=== PATIENT | female | born 1985 | race African-American/Black ===

== ENCOUNTER 2017-06-05 19:26 | Inpatient (IN) | payer MEDICAID ==
[~2017-06-05] VITALS: Ht 170.2 cm; Wt 131.8 kg
[2017-06-05] MEDS ORDERED: OXYTOCIN 30U/ 0.9% NaCL 500ML 500 ML IV PRN (19:36)
[2017-06-05] MEDS ORDERED: OXYTOCIN 30U/ 0.9% NaCL 500ML 500 ML IV ONE (19:36)
[2017-06-05 19:45] VITALS: BP 193/113
[2017-06-05] MEDS ORDERED: hydrALAzine 20 MG/ML, 1ML ONE ×2 (19:45→21:45)
[2017-06-05] MEDS ORDERED: MAGNESIUM SULF. PMX 20GM/500ML 500 ML IV ONE (19:45)
[2017-06-05] MEDS: LACTATED RINGERS 1,000 ML IV SCH (19:45)
[2017-06-05] MEDS ORDERED: MAGNESIUM SULFATE PMX 4GM/100M 100 ML ONE (19:45)
[2017-06-05] MEDS ORDERED: RHOGAM FROM BLOOD BANK 1 NOTE EA IM/IV PRN (20:00)
[2017-06-05] MEDS ORDERED: CALCIUM GLUCONATE 0.46MEQ/1ML IVPush ONE (20:00)
[2017-06-05] MEDS ORDERED: MAGNESIUM SULFATE PMX 4GM/100M 100 ML IVPB ONE (20:00)
[2017-06-05] MEDS ORDERED: PLEASE ENTER HEIGHT AND WEIGHT MC SCH (20:00)
[2017-06-05] MEDS ORDERED: PLEASE ENTER ALLERGIES MC SCH ×2 (20:00)
[2017-06-05] MEDS ORDERED: LABE100T3 PO (20:04)
[2017-06-05] MEDS: hydrALAzine 20 MG/ML, 1ML IV PRN ×3 (20:07→22:05)
[2017-06-05 20:14] LABS: HEMATOCRIT 34.1 % (34.6-47.8); HEMOGLOBIN 11.5 g/dL (11.7-16.4); WHITE BLOOD COUNT 7.4 x10^3/uL (3.4-10)
[2017-06-05 20:21] LABS: ASPARTATE AMINO TRANSFERASE 15 U/L (15-37); BLOOD UREA NITROGEN 5 mg/dL (7-18)
[2017-06-05] MEDS ORDERED: MISOPROSTOL 200 MCG TABLET ONE ×2 (20:41→22:14)
[2017-06-05 20:44] LABS: DAU SCREEN DISCLAIMER
[2017-06-05] MEDS: MISOPROSTOL 200 MCG TABLET VG SCH (20:53)
[2017-06-05 21:06] LABS: PATH.CAST-FLAG NOT PRESENT; SPERM-FLAG NOT PRESENT; SRC-FLAG NOT PRESENT; XTAL-FLAG NOT PRESENT; YLC-FLAG NOT PRESENT
[2017-06-05] MEDS ORDERED: LABETALOL 100 MG TABLET ONE ×2 (21:48→22:14)
[2017-06-05] MEDS: LABETALOL 100 MG TABLET PO SCH (21:50)
[2017-06-05] MEDS ORDERED: OXYcodone/APAP 5/325MG TABLET ONE (22:14)
[2017-06-05] MEDS ORDERED: OXYTOCIN 30U/ 0.9% NaCL 500ML 500 ML ONE (22:14)
[2017-06-05] MEDS: OXYcodone/APAP 5/325MG TABLET PO PRN (22:20)
[2017-06-05] MEDS ORDERED: LABETALOL 100 MG TABLET PO SCH (22:30)
[2017-06-05] MEDS ORDERED: ONDANSETRON 2MG/ML, 2ML ONE (23:01)
[2017-06-05] MEDS: ONDANSETRON 2MG/ML, 2ML IVPush PRN (23:03)
[2017-06-06] MEDS: hydrALAzine 20 MG/ML, 1ML IV PRN ×7 (00:09→12:54)
[2017-06-06] MEDS ORDERED: FENTANYL PF 100 MCG/2ML ONE ×2 (01:28→07:47)
[2017-06-06] MEDS: FENTANYL PF 100 MCG/2ML IVPush PRN ×2 (01:32→07:49)
[2017-06-06 03:11] LABS: HEMATOCRIT 35.8 % (34.6-47.8); HEMOGLOBIN 11.9 g/dL (11.7-16.4); WHITE BLOOD COUNT 10.9 x10^3/uL (3.4-10)
[2017-06-06 03:19] LABS: BLOOD UREA NITROGEN 5 mg/dL (7-18)
[2017-06-06 03:22] LABS: ASPARTATE AMINO TRANSFERASE 15 U/L (15-37)
[2017-06-06] MEDS ORDERED: MISOPROSTOL 200 MCG TABLET ONE (04:18)
[2017-06-06] MEDS ORDERED: ACETAMINOPHEN 325 MG TABLET ONE (04:18)
[2017-06-06] MEDS: MISOPROSTOL 200 MCG TABLET VG SCH (04:26)
[2017-06-06] MEDS ORDERED: ACETAMINOPHEN 325 MG TABLET PO PRN ×2 (04:30→10:00)
[2017-06-06] MEDS ORDERED: ACETAMINOPHEN 500 MG TABLET PO PRN (04:30)
[2017-06-06] MEDS ORDERED: MAGNESIUM SULF. PMX 20GM/500ML 500 ML IV ONE ×2 (06:01→17:31)
[2017-06-06] MEDS: MAGNESIUM SULF. PMX 20GM/500ML 500 ML IV PRN ×2 (06:03→17:39)
[2017-06-06] MEDS ORDERED: OXYcodone/APAP 5/325MG TABLET ONE (06:06)
[2017-06-06] MEDS: OXYcodone/APAP 5/325MG TABLET PO PRN (06:07)
[2017-06-06] MEDS ORDERED: LABETALOL 100 MG TABLET ONE ×2 (06:24→12:20)
[2017-06-06] MEDS ORDERED: LABETALOL 200 MG TABLET ONE ×2 (06:24→23:29)
[2017-06-06] MEDS: LABETALOL 100 MG TABLET PO SCH (06:25)
[2017-06-06] MEDS ORDERED: hydrALAzine 20 MG/ML, 1ML ONE ×3 (07:03→12:40)
[2017-06-06] MEDS: LACTATED RINGERS 1,000 ML IV SCH (07:52)
[2017-06-06] MEDS ORDERED: ONDANSETRON 2MG/ML, 2ML ONE (07:55)
[2017-06-06] MEDS: ONDANSETRON 2MG/ML, 2ML IVPush PRN (07:59)
[2017-06-06] MEDS ORDERED: morphine SULFATE 10 MG/ML, 1ML IVPush ONE ×2 (08:30→09:15)
[2017-06-06] MEDS ORDERED: METOCLOPRAMIDE 5 MG/ML, 2ML IVPush PRN (08:30)
[2017-06-06] MEDS ORDERED: METOCLOPRAMIDE 5 MG/ML, 2ML ONE ×2 (08:34→16:00)
[2017-06-06] MEDS ORDERED: morphine SULFATE 10 MG/ML, 1ML ONE (08:34)
[2017-06-06] MEDS ORDERED: OXYTOCIN 30U/ 0.9% NaCL 500ML 500 ML IV SCH (09:48)
[2017-06-06] MEDS ORDERED: MISOPROSTOL 200 MCG TABLET SL PRN (10:00)
[2017-06-06] MEDS ORDERED: IBUPROFEN 600 MG TABLET PO PRN (10:00)
[2017-06-06] MEDS ORDERED: OXYcodone/APAP 5/325MG TABLET PO PRN ×2 (10:00)
[2017-06-06] MEDS ORDERED: ONDANSETRON 2MG/ML, 2ML IV PRN (10:00)
[2017-06-06] MEDS ORDERED: DOCUSATE 100 MG CAPSULE PO PRN (10:00)
[2017-06-06] MEDS: LABETALOL 200 MG TABLET PO SCH ×2 (12:28→23:32)
[2017-06-06] MEDS ORDERED: OXYTOCIN 30U/ 0.9% NaCL 500ML 0 ML ONE (12:39)
[2017-06-06] MEDS ORDERED: LACTATED RINGERS 1,000 ML IV SCH (17:00)
[2017-06-06 17:44] LABS: HEMATOCRIT 37.7 % (34.6-47.8); HEMOGLOBIN 12.4 g/dL (11.7-16.4); WHITE BLOOD COUNT 11.5 x10^3/uL (3.4-10)
[2017-06-06] MEDS ORDERED: IBUPROFEN 600 MG TABLET ONE (23:34)
[2017-06-07] MEDS ORDERED: MAGNESIUM SULF. PMX 20GM/500ML 500 ML IV ONE (04:58)
[2017-06-07] MEDS: MAGNESIUM SULF. PMX 20GM/500ML 500 ML IV PRN (05:00)
[2017-06-07] MEDS ORDERED: LABE200T3 PO (06:54)
[2017-06-07] MEDS ORDERED: PRENATAL VIT/IRON/FA 1 EACH TABLET PO SCH (09:00)
== END 2017-06-07 07:55 | disposition home or self-care (01) | DRG 775 ==
LOC: LDIP 19:26 → 2NE 19:30
PROVIDERS: ADMIT Obstetrics & Gynecology; ATTEND Obstetrics & Gynecology
PROC: 10E0XZZ Delivery of Products of Conception, External Approach (ICD-10-PCS; principal; 2017-06-06)
DX: O36.4XX0 Maternal care for intrauterine death, not applicable or unspecified (principal); Z37.1 Single stillbirth; O69.89X0 Labor and delivery complicated by other cord complications, not applicable or unspecified; O13.4 Gestational [pregnancy-induced] hypertension without significant proteinuria, complicating childbirth; Z3A.22 22 weeks gestation of pregnancy
CPT/HCPCS: 36415; 80053; 80307; 81001; 82248; 82570; 83735; 84156; 84550; 85025; 88307; J2405; J3010; G0463; J0360; J2270; J2590; J2765; J3475; J7120

== ENCOUNTER 2018-05-16 14:46 | Inpatient (IN) | payer MEDICAID ==
[~2018-05-16] VITALS: Ht 170.2 cm; Wt 129.0 kg
[~2018-05-16 14:46] MED LIST: LABE100T3 PO; LABE200T3 PO
[2018-05-16] MEDS ORDERED: OXYTOCIN 30U/ 0.9% NaCL 500ML 500 ML IV ONE (15:13)
[2018-05-16 15:23] VITALS: BP 185/119
[2018-05-16] MEDS ORDERED: SODIUM CHLORIDE FLUSH 10ML SYR IVF PRN (15:30)
[2018-05-16] MEDS ORDERED: FENTANYL PF 100 MCG/2ML IV PRN (15:30)
[2018-05-16] MEDS ORDERED: ONDANSETRON 2MG/ML, 2ML IVPush PRN (15:30)
[2018-05-16 15:40] LABS: BASOPHILS # (AUTO) 0.01 x10^3/uL (0-0.1); BASOPHILS % (AUTO) 0 % (0-1); EOSINOPHILS # (AUTO) 0.11 x10^3/uL (0-0.4); EOSINOPHILS % (AUTO) 2 % (1-7); LYMPHOCYTES # (AUTO) 1.54 x10^3/uL (1-3.4); LYMPHOCYTES % (AUTO) 28 % (22-44); MD NO; MEAN CORPUSCULAR HEMOGLOBIN 33.3 pg (27.0-34.8); MEAN CORPUSCULAR VOLUME 97.9 fL (80-100); MEAN PLATELET VOLUME 8.8 fL (7.4-10.4); MONOCYTES # (AUTO) 0.33 x10^3/uL (0.2-0.8); MONOCYTES % (AUTO) 6 % (2-9); NEUTROPHILS # (AUTO) 3.49 x10^3/uL (1.8-6.8); NEUTROPHILS % (AUTO) 64 % (42-75); PLATELET COUNT 303 x10^3/uL (130-400); RED BLOOD COUNT 3.32 x10^6/uL (3.82-5.3); RED CELL DISTRIBUTION WIDTH 16.1 % (9.6-15.2)
[2018-05-16] MEDS ORDERED: MISOPROSTOL 200 MCG TABLET ONE ×3 (15:50→19:44)
[2018-05-16 15:55] LABS: ALBUMIN 2.6 g/dL (3.4-5.0); ANION GAP 8 mmol/L (5-15); CALCIUM 8.3 mg/dL (8.5-10.1); CHLORIDE 109 mmol/L (98-107)
[2018-05-16 15:59] LABS: ALANINE AMINOTRANSFERASE 11 U/L (12-78); ALKALINE PHOSPHATASE 53 U/L (45-117); BILIRUBIN, DIRECT 0.1 mg/dL (0.1-0.2); BILIRUBIN,TOTAL 0.4 mg/dL (0.2-1.0); CREATININE 0.79 mg/dL (0.55-1.02); TOTAL PROTEIN 7.2 g/dL (6.4-8.2)
[2018-05-16] MEDS ORDERED: MISOPROSTOL 200 MCG TABLET VG PRN ×2 (16:00→20:00)
[2018-05-16] MEDS: LACTATED RINGERS 1,000 ML IV SCH ×2 (17:03→23:47)
[2018-05-16] MEDS ORDERED: hydrALAzine 20 MG/ML, 1ML IVPush ONE ×2 (18:00)
[2018-05-16] MEDS ORDERED: LABETALOL 5MG/ML, 20ML IVPush ONE (18:00)
[2018-05-16] MEDS ORDERED: LABETALOL 5MG/ML 40ML VIAL IVPush ONE (18:00)
[2018-05-16] MEDS ORDERED: LABETALOL 100 MG TABLET ONE (18:48)
[2018-05-16] MEDS: LABETALOL 200 MG TABLET PO SCH (18:52)
[2018-05-16] MEDS ORDERED: FENTANYL PF 100 MCG/2ML ONE (20:44)
[2018-05-16] MEDS: FENTANYL PF 100 MCG/2ML IVPush PRN (20:46)
[2018-05-16] MEDS ORDERED: OXYTOCIN 30U/ 0.9% NaCL 500ML 500 ML ONE (20:48)
[2018-05-17] MEDS ORDERED: MISOPROSTOL 200 MCG TABLET VG PRN
[2018-05-17] MEDS ORDERED: FENTANYL PF 100 MCG/2ML ONE ×2 (00:13→01:53)
[2018-05-17] MEDS: FENTANYL PF 100 MCG/2ML IVPush PRN ×2 (00:16→01:55)
[2018-05-17] MEDS ORDERED: MORPHINE SULFATE 4 MG/ML, 1ML ONE (01:09)
[2018-05-17] MEDS ORDERED: MORPHINE SULFATE 4 MG/ML, 1ML IVPush PRN (01:30)
[2018-05-17] MEDS ORDERED: morphine SULFATE 10 MG/ML, 1ML IVPush PRN (01:30)
[2018-05-17] MEDS ORDERED: LACTATED RINGERS 1,000 ML IV SCH (01:47)
[2018-05-17] MEDS ORDERED: FENTANYL/BUPIV./NS/PF 250 ML EPIDCONT SCH (01:47)
[2018-05-17] MEDS ORDERED: FENTANYL PF 500 MCG, BUPIVACAINE/PF 0.5%, 30ML 62.5 ML in SODIUM CHLORIDE 0.9% 177.5 ML EPIDCONT SCH (02:00)
[2018-05-17] MEDS ORDERED: LACTATED RINGERS 1,000 ML IVBOLUS PRN (02:00)
[2018-05-17] MEDS ORDERED: ONDANSETRON 2MG/ML, 2ML ONE (02:16)
[2018-05-17] MEDS ORDERED: LABETALOL 200 MG TABLET ONE ×2 (04:27→08:48)
[2018-05-17] MEDS: LABETALOL 200 MG TABLET PO SCH (04:29)
[2018-05-17] MEDS ORDERED: LABETALOL 200 MG TABLET PO SCH (04:30)
[2018-05-17] MEDS ORDERED: OXYTOCIN 30U/ 0.9% NaCL 500ML 500 ML IV SCH (04:36)
[2018-05-17] MEDS ORDERED: ONDANSETRON 2MG/ML, 2ML IV PRN (05:00)
[2018-05-17] MEDS ORDERED: IBUPROFEN 600 MG TABLET PO PRN (05:00)
[2018-05-17] MEDS ORDERED: IBUPROFEN 600 MG TABLET ONE (08:48)
[2018-05-17] MEDS ORDERED: PRENATAL VIT/IRON/FA 1 EACH TABLET PO SCH (09:00)
[2018-05-17] MEDS ORDERED: IBUP-1222 PO (09:17)
== END 2018-05-17 09:24 | disposition home or self-care (01) | DRG 779 ==
LOC: LDIP 14:46
PROVIDERS: ADMIT Obstetrics & Gynecology; ATTEND Obstetrics & Gynecology
PROC: 10E0XZZ Delivery of Products of Conception, External Approach (ICD-10-PCS; principal; 2018-05-17)
DX: O03.9 Complete or unspecified spontaneous abortion without complication (principal); Z3A.20 20 weeks gestation of pregnancy; O02.1 Missed abortion; O16.4 Unspecified maternal hypertension, complicating childbirth; I10 Essential (primary) hypertension
CPT/HCPCS: 36415; 80053; 82248; 82570; 84156; 84550; 85025; 86850; 86900; 88305; J3010; J0360; J7120

== ENCOUNTER 2018-05-21 17:12 | Emergency (ER) | payer MEDICAID ==
[~2018-05-21] VITALS: Ht 170.2 cm; Wt 124.5 kg
[~2018-05-21 17:12] MED LIST changes: +IBUP-1222 PO; -LABE100T3 PO; +LABE100T6 PO; -LABE200T3 PO; +LABE200T6 PO
[2018-05-21] MEDS ORDERED: KETOROLAC 30 MG/1 ML ONE (17:51)
[2018-05-21] MEDS ORDERED: LABETALOL 5MG/ML, 20ML ONE (17:52)
[2018-05-21] MEDS ORDERED: SODIUM CHLORIDE FLUSH 10ML SYR IVF ONE (18:00)
[2018-05-21] MEDS ORDERED: KETOROLAC 30 MG/1 ML IVPush ONE (18:00)
[2018-05-21] MEDS ORDERED: LABETALOL 5MG/ML, 20ML IVPush ONE (18:00)
[2018-05-21 18:06] LABS: BASOPHILS # (AUTO) 0.03 x10^3/uL (0-0.1); BASOPHILS % (AUTO) 0 % (0-1); EOSINOPHILS # (AUTO) 0.19 x10^3/uL (0-0.4); EOSINOPHILS % (AUTO) 2 % (1-7); LYMPHOCYTES # (AUTO) 2.18 x10^3/uL (1-3.4); LYMPHOCYTES % (AUTO) 26 % (22-44); MD NO; MEAN CORPUSCULAR HEMOGLOBIN 33.8 pg (27.0-34.8); MEAN CORPUSCULAR HGB CONC 34.2 g/dL (32.4-35.8); MEAN PLATELET VOLUME 8.7 fL (7.4-10.4); MONOCYTES # (AUTO) 0.41 x10^3/uL (0.2-0.8); MONOCYTES % (AUTO) 5 % (2-9); NEUTROPHILS # (AUTO) 5.59 x10^3/uL (1.8-6.8); NEUTROPHILS % (AUTO) 67 % (42-75); PLATELET COUNT 322 x10^3/uL (130-400); RED BLOOD COUNT 3.26 x10^6/uL (3.82-5.3); RED CELL DISTRIBUTION WIDTH 15.8 % (9.6-15.2)
[2018-05-21 18:11] LABS: ALANINE AMINOTRANSFERASE 11 U/L (12-78); ALBUMIN 2.7 g/dL (3.4-5.0); ANION GAP 11 mmol/L (5-15); CALCIUM 8.3 mg/dL (8.5-10.1); CHLORIDE 109 mmol/L (98-107)
[2018-05-21 18:13] LABS: ALKALINE PHOSPHATASE 59 U/L (45-117); BILIRUBIN,TOTAL 0.4 mg/dL (0.2-1.0); CREATININE 1.07 mg/dL (0.55-1.02); TOTAL PROTEIN 7.9 g/dL (6.4-8.2)
[2018-05-21 18:49] LABS: CULTURE INDICATED? YES; MICROSCOPIC INDICATED
[2018-05-21 19:35] VITALS: BP 171/106
== END 2018-05-21 19:50 | disposition home or self-care (01) ==
LOC: ED 19:10
DX: O22.20 Superficial thrombophlebitis in pregnancy, unspecified trimester (principal); O23.40 Unspecified infection of urinary tract in pregnancy, unspecified trimester
CPT/HCPCS: 36415; 80053; 81001; 85025; 87077; 87086; 93971; 96374; 96375; 99285; J1885; 87186